=== PATIENT | female | born 1965 | race Caucasian/White ===

== ENCOUNTER 2021-03-27 11:40 | Outpatient (REF) | payer OTHER, SELFPAY ==
[2021-03-27 12:05] VITALS: BMI 31.9
[2021-03-27 12:06] VITALS: BP 137/92; PULSE 77; RESP 16; TEMP 36.3; O2SAT 97
== END 2021-03-27 11:41 | disposition home or self-care (01) ==
LOC: HO.MS 11:40
PROVIDERS: PCP Internal Medicine; Visit Provider Ophthalmology
PROC: (CPT 66821; principal; 2021-03-27 13:30)
DX: H26.491 Other secondary cataract, right eye (principal); Z96.1 Presence of intraocular lens; E07.9 Disorder of thyroid, unspecified; Z79.899 Other long term (current) drug therapy; Z87.891 Personal history of nicotine dependence
CPT/HCPCS: 66821

== ENCOUNTER 2021-10-30 11:32 | Outpatient (REF) | payer OTHER, SELFPAY ==
[2021-10-30 12:02] VITALS: BP 174/97; PULSE 60; RESP 16; TEMP 36.8; O2SAT 98
[2021-10-30 12:03] VITALS: BMI 33.6
== END 2021-10-30 11:33 | disposition home or self-care (01) ==
LOC: HO.MS 11:32
PROVIDERS: PCP Internal Medicine; Visit Provider Ophthalmology
PROC: (CPT 66821; principal; 2021-10-30 10:50)
DX: H26.492 Other secondary cataract, left eye (principal); Z96.1 Presence of intraocular lens; E07.9 Disorder of thyroid, unspecified; Z79.899 Other long term (current) drug therapy; Z87.891 Personal history of nicotine dependence
CPT/HCPCS: 66821